=== PATIENT | female | born 1985 | race Asian ===

== ENCOUNTER 2017-10-11 17:07 | Emergency (ER) | payer OTHER ==
[2017-10-11 17:51] LABS: #Lymphocytes 0.4 thou/uL (1.20-3.40); #Monocytes 0.2 thou/uL (0.11-0.59); #Neutrophils 6.5 thou/uL (1.40-6.50); %Basophils 0.4 % (0.0-1.0); %Eosinophils 0.7 % (0.0-10.0); %Lymphocytes 5.3 % (21.0-51.0); %Monocytes 2.7 % (0.0-10.0); Hemoglobin 15.7 g/dL (12.0-16.0); Mean Corpuscular HGB CONC 34.1 g/dL (32.0-36.0); Mean Corpuscular Volume 90.8 fl (81.0-99.0); Mean Platelet Volume 6.3 fL (7.4-10.4); Platelet Count 334 thou/uL (130-400); Red Blood Cell (RBC) Count 5.06 mill/uL (4.20-5.40); White Blood Cell (WBC) Count 7.2 thou/uL (4.8-10.8)
[2017-10-11 17:57] LABS: BHCG - Serum Negative (NEGATIVE); Pregs Control Background? CLEAR/WHITE (CLR/WHITE); Pregs Control Bar Appear? YES (CONTROL BAR)
[2017-10-11 18:07] LABS: ALT (SGPT) 17 U/L (8-55); AST (SGOT) 17 U/L (5-34); Albumin 3.9 g/dL (3.5-5.0); Alkaline Phosphatase 37 U/L (40-150); Anion Gap 17 mmol/L (10-20); BUN (Urea Nitrogen) 19 mg/dL (7.0-18.7); Bilirubin, Total 0.7 mg/dL (0.2-1.2); Calc. Creatinine Clearance 0 mL/min (70-130); Calcium 8.8 mg/dL (7.8-10.44); Carbon Dioxide 19 mmol/L (22-29); Chloride 106 mmol/L (98-107); Estimated GFR-MDRD Greater than 90; Globulin 3.2 g/dL (2.4-3.5); Glucose 155 mg/dL (70-105); Lipase 22 U/L (8-78); Potassium 3.7 mmol/L (3.5-5.1); Protein, Total 7.1 g/dL (6.0-8.3); Sodium 138 mmol/L (136-145)
[2017-10-11 18:23] LABS: Base Excess-Venous -3.3 mmol/L (0 (+/- 2.5)); Bicarbonate (HCO3v) 19.9 mmol/L (1.0-85.0); CO2 Tension (PvCO2) 30.2 mmHg (41.0-51.0); Calcium, Ionized 0.91 mmol/L (1.12-1.32); Hemoglobin - Calc 13.6 g/dL (12.0-18.0); O2 Tension (PvO2) 40.7 mmHg (35.0-45.0); Potassium 3.3 mmol/L (3.4-4.7); T. Carbon Dioxide 20.9 mmol/L (1.0-85.0); pH (Venous) 7.428 (7.35-7.45); vO2 Saturation-calc 78.1 % (94-98)
[2017-10-11] MEDS ORDERED: Promethazine HCl 25 MG/ML VIAL ONE (18:40)
== END 2017-10-11 20:11 | disposition home or self-care (01) ==
LOC: SCSER 17:07
DX: K52.9 Noninfective gastroenteritis and colitis, unspecified (principal); E10.9 Type 1 diabetes mellitus without complications; E03.9 Hypothyroidism, unspecified; Z79.51 Long term (current) use of inhaled steroids; Z79.899 Other long term (current) drug therapy; Z79.4 Long term (current) use of insulin
CPT/HCPCS: 36416; 80053; 82010; 82330; 82803; 83690; 84703; 85025; 96361; 96372; 96374; J2550

== ENCOUNTER 2017-12-03 09:06 | Outpatient (CLI) | payer OTHER ==
--- NOTE | 2017-12-03 13:27 | MRI ---
LUMBAR SPINE MRI WITHOUT CONTRAST: Date: 12/03/17 HISTORY: Back pain. Numbness and tingling x4-5 months. Symptoms radiating down the left thigh. Previous surger y. TECHNIQUE: Lumbar spine MRI is performed without intravenous Gadolinium administration. Multisequential, multipl le imaging is performed. FINDINGS: Extensive metallic susceptibility artifact secondary to posterior fusion hardware in the distal thora cic spine, at the L1, L2, and L3 levels. Overall, there appears to be appropriate T1 marrow signal in tensity in the lumbar vertebra. No significant STIR hyperintensity to suggest edema or ligamentous in jury. Symmetric signal intensity of the psoas muscles. Visualized solid organs are unremarkable. There is rightward curvature of the thoracic and upper lumbar spine. Evaluation of the central spinal canal and neural foramina is limited from metallic susceptibility ar tifact. Limited evaluation of the conus medullaris. T12-L1: No significant central canal stenosis. Neural foramina are grossly patent. L1-L2: No significant central canal stenosis. Neural foramina are grossly patent. L2-L3: No high grade central canal stenosis or high grade foraminal narrowing. L3-L4: Desiccation with mild loss of disc space height. No high grade central canal stenosis or high grade f oraminal narrowing. L4-5: Mild to moderate loss of disc space height. There is disc desiccation. Generalized disc bulge with a small central disc protrusion with minimal inferior disc extrusion. Mild narrowing of the right subar ticular cone. The traversing right L5 nerve root is not obscured. Left subarticular zone is unremarka ble. No significant stenosis of the thecal sac. Neural foramina are patent bilaterally. L5-S1: Desiccation with mild loss of disc space height. There is a central disc herniation without significa nt mass effect upon the thecal sac. Minimal encroachment upon the left and right subarticular zones w ithout significant obscuration of either traversing S1 nerve root. There is intrinsic T2 and STIR hyp erintensity involving the posterior margin of the disc suggesting an associated annular fissure. Mild bilateral foraminal narrowing. Incidental hepatic cyst is noted. IMPRESSION: 1. Postsurgical changes as above. No high grade central canal stenosis. There is narrowing of the ri ght subarticular zone at L4-L5 without obscuration of the traversing right L5 nerve root. 2. Annular fissure at L5-S1. POS: [facility]
== END 2017-12-03 09:07 | disposition home or self-care (01) ==
LOC: SCSMRI 09:06
PROVIDERS: ATTEND Orthopaedic Surgery
DX: M51.37 Other intervertebral disc degeneration, lumbosacral region (principal); M48.061 Spinal stenosis, lumbar region without neurogenic claudication
CPT/HCPCS: 72148

== ENCOUNTER 2018-08-24 03:16 | Inpatient (IN) | payer OTHER ==
[2018-08-24 04:16] VITALS: BMI 27.6
[2018-08-24 04:16] LABS: Amnisure Internal Control QC ACCEPTABLE (ACCEPTABLE); Amnisure Test RUPTURE DETECTED (No Rupture)
[2018-08-24] MEDS ORDERED: Butorphanol Tartrate 1 MG/ML VIAL SLOW IVP PRN (05:24)
[2018-08-24] MEDS ORDERED: Promethazine HCl 25 MG/ML VIAL IM PRN ×2 (05:24→12:33)
[2018-08-24] MEDS ORDERED: Ondansetron PF 4 MG/2 ML Vial IVP PRN ×3 (05:24→16:34)
[2018-08-24] MEDS ORDERED: Lactated Ringer's 1,000 ML IV SCH (05:24)
[2018-08-24] MEDS ORDERED: Clindamycin/D5W 900 MG in Premix Bag 1 BAG IVPB SCH (05:45)
[2018-08-24] MEDS ORDERED: Gentamicin Sulfate 120 MG in Premix Bag 1 BAG IVPB SCH (05:45)
[2018-08-24 06:21] LABS: Hemoglobin 12.5 g/dL (12.0-16.0); Mean Corpuscular HGB CONC 33.1 g/dL (32.0-36.0); Mean Corpuscular Hemoglobin 30.1 pg (27.0-31.0); Mean Platelet Volume 7.7 fL (7.4-10.4); Platelet Count 254 thou/uL (130-400); RBC Distribution Width 12.1 % (11.5-14.5); Red Blood Cell (RBC) Count 4.17 mill/uL (4.20-5.40); White Blood Cell (WBC) Count 7.7 thou/uL (4.8-10.8)
[2018-08-24 07:04] LABS: Syphilis Antibody Nonreactive (Nonreactive); Syphilis Antibody Index 0.03 S/CO (<1.00 Non-Reactive)
[2018-08-24 07:05] LABS: HBSAg Index 0.18 S/CO (0-0.99); Hep B Surf Ag Non-Reactive S/CO (NonReactive)
[2018-08-24] MEDS ORDERED: Bicitra 30 ML UDCUP PO SCH (08:00)
[2018-08-24] MEDS ORDERED: MORPHINE 5 MG/10 ML PF VIAL ONE (10:19)
[2018-08-24] MEDS ORDERED: ePHEDrine/0.9% NaCl/PF SYRINGE 50 mg/10 ml ONE (10:30)
[2018-08-24] MEDS ORDERED: Oxytocin 10 UNITS/ML VIAL ONE (10:30)
[2018-08-24] MEDS ORDERED: PHENYLEPHRINE-NS 100 MCG/ML 10 ML SYRINGE ONE ×2 (10:31→10:42)
[2018-08-24] MEDS ORDERED: Ondansetron PF 4 MG/2 ML Vial ONE ×2 (10:42→11:46)
[2018-08-24] MEDS ORDERED: Lidocaine 1% PF 5 ML VIAL ONE (11:14)
[2018-08-24] MEDS ORDERED: Midazolam HCl 2 mg/2 ml Vial ONE (11:50)
--- NOTE | 2018-08-24 12:29 | PDOC.OPDEL ---
OB Operative/Delivery Note Delivery Dr/Surgeon: Dotty Assist: Shavonne/Bella Pre-Delivery Diagnosis: ruptured membrane Procedure/Post Delivery Dx: repeat low transverse CS Weeks gestation: 37 Anesthesia: spinal - Findings A Sex: female Weight: 8 lb 11 oz - 1 min: 8 - 5 min: 9 - Additional Findings/Plan Placenta delivered: manual removal findings: low transverse hysterotomy without extension Estimated blood loss: 750ml Post delivery plan: routine recovery
[2018-08-24] MEDS ORDERED: diphenhydrAMINE 50 MG/ML VIAL IVP PRN (12:33)
[2018-08-24] MEDS ORDERED: Promethazine HCl 25 MG SUPP PR PRN (12:33)
[2018-08-24] MEDS ORDERED: Eucerin (Mineral Oil/Petrolatum,White) 30 gm Jar TOP PRN (12:33)
[2018-08-24] MEDS ORDERED: Naloxone HCl 0.4 mg/ml Vial IVP PRN ×2 (12:33)
[2018-08-24] MEDS ORDERED: Naloxone HCl 0.4 mg/ml Vial IV PRN (12:33)
[2018-08-24] MEDS ORDERED: Ketorolac Tromethamine 30 MG/ML VIAL IVP PRN (12:33)
[2018-08-24] MEDS ORDERED: Communication Order-Pharmacy FS SCH (12:45)
--- NOTE | 2018-08-24 14:53 | OP ---
DATE OF PROCEDURE: 08/24/2018 ADDENDUM: I was present and scrubbed to assist the repeat with Dr. Storm. Please see her note for full details. Job ID: [id number]
[2018-08-24] MEDS ORDERED: Lanolin Ointment 7 GM TUBE TOP PRN (16:34)
[2018-08-24] MEDS ORDERED: NS / Oxytocin 40 units/1000ml 1,000 ML IV SCH (16:34)
[2018-08-24] MEDS ORDERED: Acetaminophen 325 MG TAB PO PRN (16:34)
[2018-08-24] MEDS ORDERED: diphenhydrAMINE 25 MG CAP PO PRN (16:34)
[2018-08-24] MEDS ORDERED: Docusate Calcium (SURFAK) 240 MG CAP PO SCH (21:00)
[2018-08-25] MEDS ORDERED: Sodium Chloride 0.9% 10 ML ONE (01:19)
--- NOTE | 2018-08-25 01:37 | OP ---
DATE OF PROCEDURE: 08/24/2018 PREOPERATIVE DIAGNOSES: 1. A 32-year-old female, G2, P1, at 37-38 weeks. 2. History of insulin-dependent diabetes. 3. Spontaneous rupture of membranes. 4. Prior section. 5. Spinal surgery history. POSTOPERATIVE DIAGNOSES: 1. A 32-year-old female, G2, P1, at 37-38 weeks. 2. History of insulin-dependent diabetes. 3. Spontaneous rupture of membranes. 4. Prior section. 5. Spinal surgery history. 6. Delivered. PROCEDURE PERFORMED: Repeat low transverse section without extensions. HAND ETCHER HELPER SURGEON: Tayler Marvin MD OB HOSPITALIST: Dr. Schuster in [place] [id number], [facility] resident. ANESTHESIA: Spinal by Dr. Francisco Arellano. ESTIMATED BLOOD LOSS: 750 mL. COMPLICATIONS: None. COUNTS: Correct x2. ANTIBIOTICS: Clindamycin and gentamicin per protocol. FINDINGS: 1. Vigorous female , vertex presentation, Apgars 8 and 9 with weight of 8 pounds 11 ounces. 2. Clear amniotic fluid noted. 3. Normal-appearing uterus, tubes, ovaries with clear urine present in Cabrera catheter postprocedure. DISPOSITION: Recovery, stable. DESCRIPTION OF PROCEDURE: The patient previously received informed consent in regard to surgery. She was taken back to the operating room, where she received a spinal anesthetic agent administered by Dr. Arellano. She was placed in supine position, prepped and draped in usual sterile fashion. Cabrera catheter and SCDs placed were placed at this time. A Pfannenstiel incision was made through the previous scar site, carried down the fascia. Fascia was nicked in the midline. Fascial incision was extended bilaterally using curved Carranza scissors. Rectus fascia was dissected sharply and bluntly off the rectus muscle bellies. The rectus muscle bellies were divided in midline. Peritoneal cavity was entered. A bladder blade was placed in usual fashion in the vesicouterine peritoneum, bladder flap was created in usual fashion. A 2 cm hysterotomy incision was made in the lower uterine segment, this was extended via finger fractionation. The amniotic bag was ruptured clear fluid and the baby was delivered in the vertex presentation. The mouth and nares of the were bulb suctioned on the abdomen. The cord was doubly clamped and cut, handed to the pediatric team in attendance. Usual cord blood was obtained along with also cord blood banking, which was carried out at this time. The uterus was then externalized. The uterus was cleaned of any remaining placental fragments with a dry laparotomy sponge. Hysterotomy incision was closed in double-layer closure with #1 Monocryl suture. Additional 0 chromic suture was placed along the vesicouterine peritoneal edges for hemostasis. This was achieved and confirmed. Uterus returned into the abdomen. Pelvis was irrigated and suctioned. Hemostasis along the hysterotomy site was confirmed. The counts were noted to be correct. The rectus muscle bellies were inspected and noted to be hemostatic. The fascia was then closed with 0 PDS suture x2 in a running continuous fashion. Subcutaneous tissue was irrigated, noted to be hemostatic prior to skin approximation with brian. Surgery was terminated. No anesthetic or surgical complications occurred. Job ID: [id number]
[2018-08-25] MEDS: HYDROcodone/Acetaminophen 5/325 mg Tablet PO PRN ×4 (05:48→21:42)
[2018-08-25 06:12] LABS: Hemoglobin 10.7 g/dL (12.0-16.0); Mean Corpuscular Hemoglobin 30.4 pg (27.0-31.0); Mean Corpuscular Volume 91.9 fL (78.0-98.0); Mean Platelet Volume 7.3 fL (7.4-10.4); Platelet Count 247 thou/uL (130-400); RBC Distribution Width 12.3 % (11.5-14.5); Red Blood Cell (RBC) Count 3.54 mill/uL (4.20-5.40); White Blood Cell (WBC) Count 12.2 thou/uL (4.8-10.8)
[2018-08-25] MEDS: Docusate Calcium (SURFAK) 240 MG CAP PO SCH ×4 (07:18→21:46)
[2018-08-25] MEDS: Ibuprofen 800 MG TAB PO SCH ×6 (07:18→21:43)
[2018-08-25] MEDS: Ferrous Sulfate 325 MG TAB PO SCH ×3 (07:18→21:48)
[2018-08-25] MEDS ORDERED: Adacel (T-DAP) 0.5 ML SYRINGE IM ONE (09:00)
[2018-08-25] MEDS: Prenatal Vitamin 1 TAB PO SCH (11:42)
[2018-08-25] MEDS: Polyethylene Glycol 3350 17 GM Packet PO SCH (11:46)
[2018-08-25] MEDS ORDERED: Loratadine 10 MG TAB PO PRN (12:01)
--- NOTE | 2018-08-25 12:08 | PDOC.PP ---
Post Progress Note Post Day #: 1 PO intake tolerated: yes Flatus: yes Ambulation: yes Vital Signs (12 hours) Temp Pulse Resp BP Pulse Ox 08/25/18 08:46 98.2 F 82 20 135/81 98 08/25/18 05:45 98.0 F 107 H 18 118/71 08/25/18 02:00 18 08/25/18 01:30 98.7 F 107 H 18 131/88 Weight Weight 171 lb - Physical Examination Respiratory: clear to auscultation bilaterally, non-labored breathing Abdominal: + bowel sounds, lochia, no distention, appropriately TTP Result Diagrams: 08/25/18 05:28 Additional Labs: Post Labs Blood Type A POSITIVE 08/24/18 05:48 Hep Bs Antigen Non-Reactive S/CO (NonReactive) 08/24/18 05:48 - Assessment/Plan Post op day 1 from repeat c/s..type 1 IIDM-good glycemic control. Averaging around 130's. Routine care. Continue insulin pump protocol.
[2018-08-25] MEDS ORDERED: Levothyroxine Sodium 112 MCG TAB PO SCH (14:30)
[2018-08-25] MEDS ORDERED: Fluticasone Propionate Nasal Spray 16 gm Bottle NASAL SCH (14:30)
[2018-08-25] MEDS: Simethicone Chewable 80 MG TAB PO PRN (18:38)
[2018-08-26] MEDS: HYDROcodone/Acetaminophen 5/325 mg Tablet PO PRN ×5 (04:00→22:24)
[2018-08-26] MEDS: Simethicone Chewable 80 MG TAB PO PRN ×2 (04:00→17:43)
[2018-08-26] MEDS: Levothyroxine Sodium 112 MCG TAB PO SCH (06:27)
[2018-08-26] MEDS: Ibuprofen 800 MG TAB PO SCH ×3 (06:27→21:21)
[2018-08-26] MEDS: Ferrous Sulfate 325 MG TAB PO SCH ×2 (08:22→21:36)
[2018-08-26] MEDS: Prenatal Vitamin 1 TAB PO SCH (08:22)
[2018-08-26] MEDS: Docusate Calcium (SURFAK) 240 MG CAP PO SCH ×2 (08:22→21:34)
[2018-08-26] MEDS: Fluticasone Propionate Nasal Spray 16 gm Bottle NASAL SCH (08:23)
[2018-08-26] MEDS: Polyethylene Glycol 3350 17 GM Packet PO SCH (08:23)
--- NOTE | 2018-08-26 12:17 | PDOC.PP ---
Post Progress Note Post Day #: 2 PO intake tolerated: yes Flatus: yes Ambulation: yes Vital Signs (12 hours) Temp Pulse Resp BP BP Pulse Ox 08/26/18 12:08 98.1 F 71 20 128/79 08/26/18 08:14 97.9 F 78 16 139/73 97 08/26/18 01:00 97.5 F L 72 18 133/68 Weight Weight 171 lb - Physical Examination General: NAD Abdominal: + bowel sounds, lochia, no distention, appropriately TTP Skin: CS incision dry & intact, no rash Result Diagrams: 08/25/18 05:28 Additional Labs: Post Labs Blood Type A POSITIVE 08/24/18 05:48 Hep Bs Antigen Non-Reactive S/CO (NonReactive) 08/24/18 05:48 - Assessment/Plan post op day 2. Repeat c/s. Plan for discharge in AM. Glycemic control adequate.
[2018-08-27] MEDS: HYDROcodone/Acetaminophen 5/325 mg Tablet PO PRN ×5 (04:58→21:40)
[2018-08-27] MEDS: Levothyroxine Sodium 112 MCG TAB PO SCH (06:32)
[2018-08-27] MEDS: Ibuprofen 800 MG TAB PO SCH ×3 (06:33→21:39)
[2018-08-27] MEDS: Prenatal Vitamin 1 TAB PO SCH (08:57)
[2018-08-27] MEDS: Docusate Calcium (SURFAK) 240 MG CAP PO SCH ×2 (08:57→21:39)
[2018-08-27] MEDS: Polyethylene Glycol 3350 17 GM Packet PO SCH (08:57)
[2018-08-27] MEDS: Fluticasone Propionate Nasal Spray 16 gm Bottle NASAL SCH (08:58)
[2018-08-27] MEDS: Ferrous Sulfate 325 MG TAB PO SCH ×2 (09:02→21:39)
--- NOTE | 2018-08-27 09:55 | PDOC.PP ---
Post Progress Note Post Day #: 3 Subjective: Feeling much better . Ready to go home. PO intake tolerated: yes Flatus: yes Ambulation: yes Vital Signs (12 hours) Temp Pulse Resp BP Pulse Ox 08/27/18 07:57 98.0 F 68 20 150/75 H 100 Weight Weight 171 lb - Physical Examination Abdominal: + bowel sounds, lochia, no distention, appropriately TTP Result Diagrams: 08/25/18 05:28 Additional Labs: Post Labs Blood Type A POSITIVE 08/24/18 05:48 Hep Bs Antigen Non-Reactive S/CO (NonReactive) 08/24/18 05:48 - Assessment/Plan Post op day 3 from repeat c/s. Doing well. Glycemic control satisfactory. D/c home. [place] out post op day7.
[2018-08-28] MEDS: HYDROcodone/Acetaminophen 5/325 mg Tablet PO PRN ×3 (01:54→10:00)
[2018-08-28] MEDS: Levothyroxine Sodium 112 MCG TAB PO SCH (05:55)
[2018-08-28] MEDS: Ibuprofen 800 MG TAB PO SCH (05:55)
--- NOTE | 2018-08-28 06:02 | PDOC.PP ---
Post Progress Note Post Day #: POD#4 Subjective: Resting, no c/o. PO intake tolerated: yes Flatus: yes Ambulation: yes Vital Signs (12 hours) Temp Pulse Resp BP 08/27/18 20:25 97.9 F 82 18 141/80 H Weight Weight 77.564 kg - Physical Examination General: NAD Respiratory: non-labored breathing Abdominal: no distention Skin: CS incision dry & intact Psychiatric: normal affect Result Diagrams: 08/25/18 05:28 Additional Labs: Post Labs Blood Type A POSITIVE 08/24/18 05:48 Hep Bs Antigen Non-Reactive S/CO (NonReactive) 08/24/18 05:48 - Assessment/Plan Doing weel. DC home with precautions. RTC 1 week for staple removal by Dr. Storm.
[2018-08-28 08:48] VITALS: BP 142/84; TEMP 98.2
[2018-08-28] MEDS: Fluticasone Propionate Nasal Spray 16 gm Bottle NASAL SCH (09:27)
[2018-08-28] MEDS: Polyethylene Glycol 3350 17 GM Packet PO SCH (09:27)
[2018-08-28] MEDS: Docusate Calcium (SURFAK) 240 MG CAP PO SCH (09:27)
[2018-08-28] MEDS: Prenatal Vitamin 1 TAB PO SCH (09:27)
[2018-08-28] MEDS: Ferrous Sulfate 325 MG TAB PO SCH (10:04)
== END 2018-08-28 13:30 | disposition home or self-care (01) | DRG 786 ==
LOC: L&D/OP 03:16 → L&D 06:20 → 3SW 16:34
PROVIDERS: ADMIT Obstetrics & Gynecology; ATTEND Obstetrics & Gynecology
PROC: 10D00Z1 Extraction of Products of Conception, Low, Open Approach (ICD-10-PCS; principal; 2018-08-24)
DX: O34.211 Maternal care for low transverse scar from previous cesarean delivery (principal); O24.02 Pre-existing type 1 diabetes mellitus, in childbirth; E10.9 Type 1 diabetes mellitus without complications; O99.284 Endocrine, nutritional and metabolic diseases complicating childbirth; E03.9 Hypothyroidism, unspecified; Z3A.37 37 weeks gestation of pregnancy; Z79.4 Long term (current) use of insulin; Z79.899 Other long term (current) drug therapy; Z96.41 Presence of insulin pump (external) (internal); Z37.0 Single live birth
CPT/HCPCS: 36415; 51702; 84112; 85027; 86780; 86850; 86900; 86901; 87340; 99285; J1580; J1885; J2001; J2250; J2270; J2405; J2590; J3490; J7050

== ENCOUNTER 2019-05-27 15:41 | Outpatient (CLI) | payer OTHER ==
--- NOTE | 2019-05-27 16:58 | MRI ---
Exam: MRI cervical spine without contrast HISTORY: Radiculopathy. COMPARISON: None FINDINGS: Appropriate T1 marrow signal intensity of the cervical vertebra. Cervical spine vertebral body heigh t is maintained. No fracture. Straightening of normal cervical lordosis may be positional. There is no significant STIR hyperintensity to suggest vertebral body edema or ligamentous injury. Visualized brain parenchyma, cervicomedullary junction, cervical cord and the upper thoracic cord hav e a normal size and signal intensity. Bilateral posterior transpedicular screws at T2 and T3 are noted. Associated metallic susceptibly ar tifact. C2-C3: No significant central canal stenosis or significant neural foraminal narrowing C3-C4: No significant central canal stenosis or significant neural foraminal narrowing C4-C5: No significant central canal stenosis or significant neural foraminal narrowing C5-C6: No significant central canal stenosis or significant neural foraminal narrowing C6-C7: No significant central canal stenosis or significant neural foraminal narrowing C7-T1: No significant central canal stenosis or significant neural foraminal narrowing IMPRESSION: 1. No significant central canal stenosis or significant neural foraminal narrowing. 2. Straightening of normal cervical lordosis which may be positional. 3. Posterior fusion of the upper thoracic spine. Transcribed Date/Time: 05/27/2019 5:06 PM
== END 2019-05-27 15:42 | disposition home or self-care (01) ==
LOC: SCSMRI 15:41
PROVIDERS: ATTEND Anesthesiology Pain Medicine
DX: M54.12 Radiculopathy, cervical region (principal); Z98.1 Arthrodesis status
CPT/HCPCS: 72141